=== PATIENT | male | born 1990 | race Caucasian/White ===

== ENCOUNTER 2016-12-02 20:31 | Emergency (ER) | payer BC ==
[~2016-12-02] VITALS: Ht 177.8 cm; Wt 81.6 kg
[2016-12-02 20:31] VITALS: BP 101/62
--- NOTE | 2016-12-02 20:37 | ED.ADGEN ---
Adult General Chief Complaint Chief Complaint " I think injured my left foot on .. it still hurts..." HPI HPI Patient is a 26 year old male who presents with above history and complaints of contusion and twisting injury to left foot during a celebration. Patient does have areas of ecchymosis on left foot. It is painful to bear weight. Distal neurovascular intact. Squeeze test is positive for pain. Upper leg is nontender. Ankle is nontender. Patient normally healthy. No other injuries reported. Review of Systems Review of Systems Constitutional: Denies fever or chills [] Eyes: Denies change in visual acuity, redness, or eye pain [] HENT: Denies nasal congestion or sore throat [] Respiratory: Denies cough or shortness of breath [] Cardiovascular: No additional information not addressed in HPI [] GI: Denies abdominal pain, nausea, vomiting, bloody stools or diarrhea [] : Denies dysuria or hematuria [] Musculoskeletal: History of left foot pain Integument: Denies rash or skin lesions [] Neurologic: Denies headache, focal weakness or sensory changes [] Endocrine: Denies polyuria or polydipsia [] Family History Family History Noncontributory Current Medications Current Medications See nursing for home medications Allergies Allergies No known drug allergies Physical Exam Physical Exam Constitutional: Well developed, well nourished, no acute distress, non-toxic appearance. [] HENT: Normocephalic, atraumatic, bilateral external ears normal, oropharynx moist, no oral exudates, nose normal. [] Eyes: PERRLA, EOMI, conjunctiva normal, no discharge. [] Neck: Normal range of motion, no tenderness, supple, no stridor. [] Cardiovascular:Heart rate regular rhythm, no murmur [] Lungs & Thorax: Bilateral breath sounds equal at apexes with a few scattered wheezes on auscultation [] Abdomen: Bowel sounds normal, soft, no tenderness, no masses, no pulsatile masses. [] Skin: Warm, dry, no erythema, no rash. [] Back: No tenderness, no CVA tenderness. [] Extremities: Left Foot tenderness, no cyanosis, no clubbing, ROM intact,Lt. foot edema. Left foot ecchymosis Neurologic: Alert and oriented X 3, normal motor function, normal sensory function, no focal deficits noted. [] Psychologic: Affect anxious, judgement normal, mood normal. [] Current Patient Data Vital Signs Vital Signs Date Time Temp Pulse Resp B/P Pulse Ox O2 Delivery O2 Flow Rate FiO2 12/02/16 20:31 97.3 63 20 98 Room Air EKG EKG [] Radiology/Procedures Radiology/Procedures I interpretation of x-ray shows edema but no obvious dislocation or displaced fracture. [] Course & Med Decision Making Course & Med Decision Making Pertinent Labs and Imaging studies reviewed. (See chart for details) Ice, elevation, rest, and wear a stiff shoe. Take [id number] Tylenol and ibuprofen pain. For marked pain may take Vicoprofen up 4 times a day. Follow-up primary care. Return if any concerns. [] Final Impression Final Impression 1. Lt foot sprain and contusion[] Problems: Dragon Disclaimer Dragon Disclaimer This electronic medical record was generated, in whole or in part, using a voice recognition dictation system. BRII SHINE MD Dec 02, 2016 20:37
[2016-12-02] MEDS ORDERED: HYDR-79 PO (20:44)
--- NOTE | 2016-12-03 09:01 | RAD ---
Indication injury, pain particularly the fourth digit. AP oblique and lateral views of the left foot were obtained. No bony abnormality is seen
== END 2016-12-02 21:10 | disposition home or self-care (01) ==
LOC: ER 20:37
DX: S93.602A Unspecified sprain of left foot, initial encounter (principal); X58.XXXA Exposure to other specified factors, initial encounter; Y93.89 Activity, other specified; Y99.8 Other external cause status; Y92.89 Other specified places as the place of occurrence of the external cause
CPT/HCPCS: 73630; 99284

== ENCOUNTER 2017-05-16 19:14 | Emergency (ER) | payer BC ==
[~2017-05-16] VITALS: Ht 180.3 cm; Wt 59.0 kg
[~2017-05-16 19:14] MED LIST: HYDR-79 PO
[2017-05-16 19:27] VITALS: BP 128/75
--- NOTE | 2017-05-16 19:31 | PHYS DOC ---
Past History Past Medical History: No Pertinent History Past Surgical History: No Surgical History Alcohol Use: Occasionally Drug Use: None Adult General Chief Complaint Chief Complaint: multiple complaints HPI HPI Patient is a 26 year old male who presents with multiple complaints. Patient states that 4 days ago he started having problems a sore throat and cough. Patient states his sore throat has persisted in his coughing has decreased, however the patient developed back pain approximately 2 days ago. Patient states that the pain has persisted. Patient states that the maximal area of pain resides on his left flank. Patient denies radiation to his groin. The patient denies history of kidney stones or other health problems. Patient has had no history of similar symptoms in the past. Patient states that he is sexually active and had unprotected sexual intercourse one week ago. Patient denies dysuria or abnormal penile discharge. The patient notes that he has had decreased urine output. Patient's urine was dark yellow today and patient states he has only urinated once today so far. Patient has had decreased appetite but denies any vomiting or diarrhea. The patient rates his pain currently as 5 out of 10. Patient has not taken any medications for his symptoms at this time. Review of Systems Review of Systems Constitutional: Denies fever or chills [] Eyes: Denies change in visual acuity, redness, or eye pain [] HENT: Sore throat[] Respiratory: Cough[] Cardiovascular: Denies chest pain or edema[] GI: Anorexia, denies vomiting, bloody stools or diarrhea [] : Oliguria, denies penile discharge, dysuria, or hematuria[] Musculoskeletal: Left flank pain[] Integument: Denies rash or skin lesions [] Neurologic: Denies headache, focal weakness or sensory changes [] Allergies Allergies No known drug allergies Physical Exam Physical Exam Constitutional: Alert, elevated temperature, appears in [id number] discomfort. [] HENT: Normocephalic, atraumatic, bilateral external ears normal, oropharynx erythematous, no oral exudates, nose normal. [] Eyes: PERRLA, EOMI, conjunctiva normal, no discharge. [] Neck: Normal range of motion, tender anterior cervical lymphadenopathy present, no nuchal rigidity, supple, no stridor. [] Cardiovascular:Heart rate regular rhythm, no murmur [] Lungs & Thorax: Bilateral breath sounds clear to auscultation [] Abdomen: Bowel sounds normal, soft, mild left lower quadrant tenderness to palpation, no guarding or rebound tenderness, no masses, no pulsatile masses. [ ] Skin: Warm, dry, no erythema, no rash. [] Back: No midline tenderness, no CVA tenderness, no flank ecchymosis. [] Extremities: No tenderness, no cyanosis, no clubbing, ROM intact, no edema. [] Neurologic: Alert and oriented X 3, normal motor function, normal sensory function, no focal deficits noted. [] Current Patient Data Vital Signs Vital Signs Date Time Temp Pulse Resp B/P (MAP) Pulse Ox O2 Delivery O2 Flow Rate FiO2 05/16/17 19:27 99.9 95 20 95 Room Air EKG EKG Not performed[] Radiology/Procedures Radiology/Procedures Two-view chest x-ray interpreted by me: No infiltrates, no effusions, normal cardiac silhouette [address] [id number] IMAGING REPORT Signed PATIENT: AMINATA DONG ACCOUNT: [id number] : 1990 LOCATION: ER AGE: 26 SEX: M EXAM STATUS: PRE ER ORD. PHYSICIAN: ORTIZ VILLARREAL MD REASON: left flank pain, hematuria, rule out kidney stone PROCEDURE: CT ABDOMEN PELVIS WO CONTRAST EXAM: Abdomen and pelvis CT without intravenous contrast. HISTORY: Left flank pain. TECHNIQUE: Computed tomographic images of the abdomen and pelvis were obtained without contrast. Multiplanar reformatting was performed. *One or more of the following individualized dose reduction techniques were utilized for this examination: 1. Automated exposure control. 2. Adjustment of the mA and/or kV according to patient size. 3. Use of iterative reconstruction technique. COMPARISON: None. FINDINGS: Evaluation of the lower thorax is unremarkable. No hepatic lesion is seen. The gallbladder, pancreas, spleen and adrenal glands are unremarkable. There is no evidence of nephrolithiasis or obstructive uropathy. There is slight decreased attenuation within the anterior left kidney which is likely artifactual. No convincing cystic or solid lesion is seen on this noncontrast exam. No abnormally thickened or dilated loop of bowel is seen. There is gas and stool within the rectal vault. The bladder is unremarkable. No pathologically enlarged lymph node is seen. There is no suspicious osseous lesion. IMPRESSION: No acute abdominal or pelvic finding. Specifically, no findings correlate with left flank pain. Electronically signed by: Marcia Fleming MD (05/16/2017 10:25 PM) [facility] DICTATED AND SIGNED BY: MARCIA FLEMING MD DATE: 05/16/17 2222 CC: ORTIZ VILLARREAL MD; LAVON HERMAN ~ [] Course & Med Decision Making Course & Med Decision Making Pertinent Labs and Imaging studies reviewed. (See chart for details) Patient was given IV fluids and Toradol in the emergency department. On reevaluation, patient states his symptoms have improved. Patient's workup shows no specific findings for acute bacterial infection. The patient's urinalysis showed evidence of protein and blood as well as increased specific gravity consistent with dehydration. The patient's CT scan shows no other acute findings. The patient's symptoms are suspected to be viral in origin, however I did stress to patient that continued observation of symptoms at home would be important. Recommended follow-up in 3-4 days with patient's primary doctor for reevaluation. Advised return emergency department for any worsening symptoms. Patient was understanding and in agreement with treatment plan. Dragon Disclaimer Dragon Disclaimer This chart was dictated in whole or in part using Voice Recognition software in a busy, high-work load, and often noisy Emergency Department environment. It may contain unintended and wholly unrecognized errors or omissions. Departure Departure: Impression: Primary Impression: Flank pain Additional Impressions: Sore throat (viral) Dehydration Disposition: 01 HOME, SELF-CARE Condition: IMPROVED Referrals: LAVON HERMAN (PCP) Patient Instructions: Dehydration, Adult, Flank Pain, Sore Throat Additional Instructions: Follow-up with your primary doctor in 3-4 days for reevaluation. Return to emergency department for any worsening symptoms. Scripts Ondansetron (ZOFRAN ODT) 4 Mg Tab.rapdis 1 TAB SL Q8HRS Y for NAUSEA/VOMITING, #15 TAB Prov: ORTIZ VILLARREAL MD 05/16/17 Problem Qualifiers ORTIZ VILLARREAL MD May 16, 2017 19:31
[2017-05-16] MEDS ORDERED: IV NORMAL SALINE 1,000ML 1,000 ML IV SCH (20:10)
[2017-05-16 20:29] LABS: BASO # 0.1 x10^3/uL (0.0-0.2); BASO % 0 % (0-3); EOS % 0 % (0-3); HEMATOCRIT 41.3 % (39.0-53.0); LYMPH # 1.5 x10^3/uL (1.0-4.8); LYMPH % 8 % (24-48); MEAN CORPUSCULAR HEMOGLOBIN 30 pg (25-35); MEAN CORPUSCULAR HGB CONC 34 g/dL (31-37); MEAN CORPUSCULAR VOLUME 87 fL (79-100); MONO # 1.7 x10^3/uL (0.0-1.1); MONO % 9 % (0-9); NEUT # 15.6 x10^3uL (1.8-7.7); NEUT % 82 % (31-73); PLATELET COUNT 163 x10^3/uL (140-400); RED BLOOD COUNT 4.73 x10^6/uL (4.30-5.70); RED CELL DISTRIBUTION WIDTH 13.4 % (11.5-14.5); WHITE BLOOD COUNT 18.9 x10^3/uL (4.0-11.0)
[2017-05-16 20:42] LABS: ALBUMIN 3.9 g/dL (3.4-5.0); ALBUMIN/GLOBULIN RATIO 1.1 (1.0-1.7); CALCIUM 8.9 mg/dL (8.5-10.1); CREATININE 0.9 mg/dL (0.7-1.3); GFR 103.7; POTASSIUM 3.5 mmol/L (3.5-5.1); TOTAL BILIRUBIN 0.7 mg/dL (0.2-1.0); TOTAL PROTEIN 7.4 g/dL (6.4-8.2)
[2017-05-16 20:53] LABS: BILIRUBIN,URINE NEG (NEG); CLARITY,URINE CLEAR; COLOR,URINE YELLOW; GLUCOSE,URINE NEG (NEG); NITRITE,URINE NEG (NEG); UROBILINOGEN,URINE 8 mg/dL (0.2 mg/dL)
[2017-05-16 20:54] LABS: BACTERIA,URINE 0 /HPF (0-FEW); WBC,URINE OCC /HPF (0-4)
[2017-05-16] MEDS ORDERED: KETOROLAC 30 MG/ML VIAL. IV ONE (22:15)
[2017-05-16 22:21] LABS: % LYMPHS 9 % (24-48); % MONOS 3 % (0-10); % SEGS 88 % (35-66)
[2017-05-16 22:22] LABS: PLT ESTIMATE ADEQUATE (ADEQUATE)
--- NOTE | 2017-05-16 22:28 | RAD ---
EXAM: Abdomen and pelvis CT without intravenous contrast. HISTORY: Left flank pain. TECHNIQUE: Computed tomographic images of the abdomen and pelvis were obtained without contrast. Multiplanar reformatting was performed. *One or more of the following individualized dose reduction techniques were utilized for this examination: 1. Automated exposure control. 2. Adjustment of the mA and/or kV according to patient size. 3. Use of iterative reconstruction technique. COMPARISON: None. FINDINGS: Evaluation of the lower thorax is unremarkable. No hepatic lesion is seen. The gallbladder, pancreas, spleen and adrenal glands are unremarkable. There is no evidence of nephrolithiasis or obstructive uropathy. There is slight decreased attenuation within the anterior left kidney which is likely artifactual. No convincing cystic or solid lesion is seen on this noncontrast exam. No abnormally thickened or dilated loop of bowel is seen. There is gas and stool within the rectal vault. The bladder is unremarkable. No pathologically enlarged lymph node is seen. There is no suspicious osseous lesion. IMPRESSION: No acute abdominal or pelvic finding. Specifically, no findings correlate with left flank pain. Electronically signed by: Marcia Rodriguez MD (05/16/2017 10:25 PM) [facility]
[2017-05-16] MEDS ORDERED: ONDA4TAB10 SL (22:43)
--- NOTE | 2017-05-17 08:20 | RAD ---
EXAM: CHEST 2 VIEWS History: Upper back pain COMPARISON: 10/30/2011 TECHNIQUE: PA and lateral chest radiographs FINDINGS: The cardiomediastinal silhouette is within normal limits. The lungs are clear bilaterally. The costophrenic sulci are clear and well demarcated bilaterally. The osseous structures and soft tissues are unremarkable. IMPRESSION: No radiographic evidence of an acute cardiopulmonary abnormality.
== END 2017-05-16 22:54 | disposition home or self-care (01) ==
LOC: ER 19:14
DX: E86.0 Dehydration (principal); J02.9 Acute pharyngitis, unspecified; R10.32 Left lower quadrant pain; R34 Anuria and oliguria
CPT/HCPCS: 36415; 71020; 74176; 80053; 81001; 82550; 85007; 85025; 87070; 87880; 96361; 96374; 99285; J1885; J7030

== ENCOUNTER 2017-05-20 09:43 | Emergency (ER) | payer SELFPAY ==
[~2017-05-20] VITALS: Ht 180.3 cm; Wt 59.0 kg
[~2017-05-20 09:43] MED LIST changes: +ONDA4TAB10 SL
[2017-05-20] MEDS ORDERED: AZIT1PAC9 PO (09:53)
--- NOTE | 2017-05-20 09:54 | PHYS DOC ---
Past History Past Medical History: Anxiety Past Surgical History: Other Alcohol Use: Occasionally Drug Use: None Adult General Chief Complaint Chief Complaint: SORE THROAT HPI HPI Patient is a 26 year old M who presents with sore throat. Patient had a sore throat for the past 4 days and was seen on Friday and the rapid strep is negative however his throat has gotten worse. Patient denies any fevers. Patient denies any chest pain shows of breath. Patient denies any other symptoms. Review of Systems Review of Systems GEN: Denies fevers, chills, sweats HEENT: sore throat CV: Denies chest pain RESP: Denies shortness of air, cough GI: Denies n/v/d NEURO: Denies confusion, dizziness MSK: Denies weakness, joint pain/swelling Allergies Allergies Allergies Coded Allergies Type Severity Reaction Last Updated Verified No Known Drug Allergies 05/16/17 No Physical Exam Physical Exam GEN.: No apparent distress. Alert and oriented. HEENT: Head is normocephalic, atraumatic, posterior pharynx is erythematous with swollen tonsils bilaterally and exudates and petechiae on the soft palate NECK: Supple, cervical lymphadenopathy palpated bilaterally LUNGS: CTAB. HEART: RRR, S1, S2 present. Peripheral pulses intact ABDOMEN: Soft, nontender. Positive bowel sounds. EXTREMITIES: Without any cyanosis. NEUROLOGIC: Normal speech, normal tone PSYCHIATRIC: Normal affect, normal mood. SKIN: No ulcerations EKG EKG [] Radiology/Procedures Radiology/Procedures [] Course & Med Decision Making Course & Med Decision Making Pertinent Labs and Imaging studies reviewed. (See chart for details) ED course: Patient was seen and examined emergency room and basophils exam findings will go ahead and treat for strep throat patient received 10 mg Decadron IM and prescription for Z-Nahun MDM: After reviewing the chart, CC/HPI/PMH, physical exam, I do not believe the patient has a significant bacterial infection warranting further workup and/or admission at this time. I have low suspicion for retropharyngeal abscess or peritonsillar abscess at this time. I believe based off the patient's physical exam findings he has strep throat and will treat with antibiotics and steroids. Patient is stable for discharge. Additional verbal discharge instructions were provided to the patient and that if symptoms get worse or any new symptoms arise that are worrisome to the patient he is to return to the emergency room immediately [] Doreen Disclaimer Dragon Disclaimer This chart was dictated in whole or in part using Voice Recognition software in a busy, high-work load, and often noisy Emergency Department environment. It may contain unintended and wholly unrecognized errors or omissions. Departure Departure: Impression: Primary Impression: Pharyngitis due to Streptococcus species Disposition: HOME, SELF-CARE Condition: STABLE Referrals: LAVON HERMAN (PCP) Patient Instructions: Strep Throat Tests-Brief Additional Instructions: Please follow-up with your family physician in the next one to 2 days Scripts Azithromycin (AZITHROMYCIN PACKET) 1 Gm Packet 1 PACKET PO ONCE, #1 PACKET Prov: LUIS GREGORIO DO 05/20/17 LUIS GREGORIO DO May 20, 2017 09:54
[2017-05-20 09:55] VITALS: BP 112/64
[2017-05-20] MEDS ORDERED: DEXAMETHASONE SOD PHOS 10 MG/ML VIAL IM ONE (10:15)
== END 2017-05-20 10:13 | disposition home or self-care (01) ==
LOC: ER 09:43
DX: J02.0 Streptococcal pharyngitis (principal); F41.9 Anxiety disorder, unspecified
CPT/HCPCS: 96372; 99283; J1100

== ENCOUNTER 2017-05-22 03:36 | Emergency (ER) | payer SELFPAY ==
[~2017-05-22] VITALS: Ht 180.3 cm; Wt 59.0 kg
[~2017-05-22 03:36] MED LIST changes: +AZIT1PAC9 PO
[2017-05-22 03:46] VITALS: BP 117/67
--- NOTE | 2017-05-22 03:55 | ED.ADGEN ---
Past History Past Medical History: Anxiety, Other Past Surgical History: Other Alcohol Use: Occasionally Drug Use: None Adult General Chief Complaint Chief Complaint " I was here back on 05/16.. and back on Friday...because my throat was still sore.. and they started me on Zithromax.. but I still got a sore throat.. fever.. and now a ear ache..on Lt. ..." HPI HPI Patient is a 26 year old male who presents with above hx and complains of Lt ear pain, and recent + Stept culture. Pt. had min. intake of Azithromax. Pt. states he can never take pills, except his Xanax. Pt. denies travel or specific ill contacts. There have been fellows workers at [employer] where he works that have been sick. Pt. follows with Dr. Erickson. No NK D allergies. No hx of immunosuppression or IV drug use. Review of Systems Review of Systems Constitutional: Hx. of fever or chills [] Eyes: Denies change in visual acuity, redness, or eye pain [] HENT: Hx of sore throat and now Lt ear ache Respiratory: Denies cough or shortness of breath [] Cardiovascular: No additional information not addressed in HPI [] GI: Denies abdominal pain, nausea, vomiting, bloody stools or diarrhea [] : Denies dysuria or hematuria [] Musculoskeletal: Denies back pain or joint pain [] Integument: Denies rash or skin lesions [] Neurologic: Denies headache, focal weakness or sensory changes [] Endocrine: Denies polyuria or polydipsia [] Family History Family History Non-contributory Current Medications Current Medications Current Medications Medications (Trade) Dose Ordered Sig/Celso Start Time Stop Time Status Last Admin Dose Admin Dexamethasone Sodium Phosphate (Decadron) 10 mg STK-MED ONCE 05/22/17 04:11 05/22/17 04:32 DC Diphenhydramine HCl (Benadryl Oral Elixir) 12.5 mg STK-MED ONCE 05/22/17 04:11 05/22/17 04:32 DC Ketorolac Tromethamine (Toradol) 60 mg STK-MED ONCE 05/22/17 04:00 05/22/17 04:32 DC Penicillin G Benzathine (Bicillin L-A) 1,200,000 unit STK-MED ONCE 05/22/17 03:59 05/22/17 04:32 DC See Nursing for home meds. Allergies Allergies Allergies Coded Allergies Type Severity Reaction Last Updated Verified No Known Drug Allergies 05/20/17 No Physical Exam Physical Exam Constitutional: Well developed, well nourished, in moderate distress, non-toxic appearance. [] HENT: Normocephalic, atraumatic, bilateral external ears normal, oropharynx moist,injected pharynx, Lt TM slightly injected. no oral exudates, nose normal. [] Eyes: PERRLA, EOMI, conjunctiva normal, no discharge. [] Neck: Normal range of motion, no tenderness, supple, no stridor. [] Nodes in anterior cervical chain. Cardiovascular Tachycardia rate regular rhythm, no murmur [] Lungs & Thorax: Bilateral breath sounds clear to auscultation [] Abdomen: Bowel sounds normal, soft, no tenderness, no masses, no pulsatile masses. [] Skin: Warm, dry, no erythema, no rash. [] Back: No tenderness, no CVA tenderness. [] Extremities: No tenderness, no cyanosis, no clubbing, ROM intact, no edema. [] Neurologic: Alert and oriented X 3, normal motor function, normal sensory function, no focal deficits noted. [] Psychologic: Affect anxious, judgement normal, mood normal. [] Current Patient Data Vital Signs Vital Signs Date Time Temp Pulse Resp B/P (MAP) Pulse Ox O2 Delivery O2 Flow Rate FiO2 05/22/17 03:46 92 16 100 Room Air EKG EKG [] Radiology/Procedures Radiology/Procedures [] Course & Med Decision Making Course & Med Decision Making Pertinent Labs and Imaging studies reviewed. (See chart for details) Must gargle 4 x day with Listerine and as needed. Push fluids , popsicles, fruit juces ect. Complete the Zithromax Rx., Take Liquid Ibuprofen if can not tolerate pills 600mg 4 x day for fever and discomfort., Liquid Ibuprofen will cause topical pain relief. Liquid Benadryl with also give topical relief of pain. Follow up with primary. Must get adequate fluid intake. Follow up with primary. Return if any concern.s [] Final Impression Final Impression 1. Strep pharyngitis 2. Left ear pain 3. Fever and chills[] Problems: Dragon Disclaimer Dragon Disclaimer This electronic medical record was generated, in whole or in part, using a voice recognition dictation system. BRII SHINE MD May 22, 2017 03:55
[2017-05-22] MEDS ORDERED: PENICILLIN G BENZATHINE LA 1,200,000 UNIT/2 ML DISP.SYRIN. IM ONE ×2 (03:59→04:00)
[2017-05-22] MEDS ORDERED: diphenhydrAMINE ORAL ELIXIR 12.5 MG/5 ML ML PO ONE (04:00)
[2017-05-22] MEDS ORDERED: KETOROLAC 60 MG/2 ML VIAL. IM ONE ×2 (04:00)
[2017-05-22] MEDS ORDERED: DEXAMETHASONE SOD PHOS 10 MG/ML VIAL IM ONE (04:00)
[2017-05-22] MEDS ORDERED: DEXAMETHASONE SOD PHOS 10 MG/ML VIAL ONE (04:11)
[2017-05-22] MEDS ORDERED: diphenhydrAMINE ORAL ELIXIR 12.5 MG/5 ML ML ONE (04:11)
== END 2017-05-22 04:32 | disposition home or self-care (01) ==
LOC: ER 03:36
DX: J02.0 Streptococcal pharyngitis (principal); H92.02 Otalgia, left ear; F41.9 Anxiety disorder, unspecified
CPT/HCPCS: 96372; 99284; J0561; J1100; J1885